=== PATIENT | male | born 1975 | race Asian ===

== ENCOUNTER 2025-01-19 13:01 | Emergency (ER) | payer BC, SELFPAY ==
[2025-01-19 13:27] VITALS: BP 121/86; PULSE 89; RESP 18; TEMP 37.2; O2SAT 96; BMI 41.9
--- NOTE | 2025-01-19 13:40 | PD.EDRME ---
Rapid Medical Screening Exam RME Arrival date/time: 01/19/25 13:01 49-year-old male presents to the emergency department today stating was sent here by PCP for low hemoglobin Chief Complaint: Recheck/Abnormal Lab/Rx Time Seen by Provider: 01/19/25 13:24 Vital signs: Vital Signs Temperature 99 F 01/19/25 13:27 Pulse Rate 89 01/19/25 13:27 Respiratory Rate 18 01/19/25 13:27 Blood Pressure 121/86 H 01/19/25 13:27 Pulse Oximetry (%) 96 01/19/25 13:27 Oxygen Delivery Method Room Air 01/19/25 13:27
[2025-01-19 14:18] LABS: Basophils % (Auto) 0 % (0-2.5); Eosinophils # (Auto) 0.1 Thou/mm3 (0.0-0.5); Eosinophils % (Auto) 1 % (0-10); Hematocrit 49.5 % (41.0-53.0); Hemoglobin 17.8 g/dL (13.5-16.0); Immature Granulocytes % (Auto) 0 % (0-0); Immature Granulocytes Auto 0.02 Thou/mm3 (0.00-0.00); Lymphocytes % (Auto) 42 % (10-50); Mean Corpuscular Volume 83 fL (80-100); Monocytes # (Auto) 0.5 Thou/mm3 (0.0-0.8); Monocytes % (Auto) 7 % (0-12); Neutrophils # (Auto) 3.6 Thou/mm3 (1.8-7.7); Neutrophils % (Auto) 50 % (37-80); Nucleated Red Blood Cell % 0 /100 WBC (0); Platelet Count 203 Thou/mm3 (140-440); RDW Standard Deviation 39.4 fL (35.1-43.9); Red Blood Count 5.94 Miln/mm3 (4.50-5.90); White Blood Count 7.2 Thou/mm3 (3.8-10.6)
[2025-01-19 14:35] LABS: Partial Thromboplastin Time 26.2 Seconds (22.0-36.0); Prothrombin Time 11.4 Seconds (9.0-12.2)
[2025-01-19 14:41] LABS: Alanine Aminotransferase 40 U/L (10-49); Albumin, Serum 4.7 gm/dL (3.5-5.0); Albumin/Globulin Ratio 1.5 (1.2-2.2); Alkaline Phosphatase 113 U/L (46-116); Anion Gap 7 (7-16); Aspartate Amino Transferase 29 U/L (0-34); BUN/Creatinine Ratio 12 Ratio (12-20); Bilirubin,Total 1.4 mg/dL (0.3-1.2); Blood Urea Nitrogen 13 mg/dL (9-23); Calcium 9.8 mg/dL (8.3-10.6); Calcium (Corrected) 9.8 mg/dL (8.5-10.1); Carbon Dioxide 27.1 mMol/L (20.0-31.0); Chloride 98 mMol/L (98-107); Creatinine (Component) 1.1 mg/dL (0.6-1.3); Estimated Creatinine Clearance 99.3 mL/min (>60); Globulin 3.2 gm/dL (2.3-3.5); Osmolality,Calculated 281 (275-295); Potassium 3.9 mMol/L (3.4-5.1); Sodium 132 mMol/L (136-145); Total Protein 7.9 gm/dL (5.7-8.2); eGFR > 60 See Note
[2025-01-19 14:42] LABS: Glucose 404 mg/dL (74-106)
[2025-01-19 17:01] VITALS: BP 148/94; PULSE 83; RESP 19; TEMP 36.8; O2SAT 97
--- NOTE | 2025-01-19 17:13 | EDNOTE_ITS ---
ED General RME/HPI General Chief complaint: Recheck/Abnormal Lab/Rx Stated complaint: SENT FOR BLOOD TRANSFUSION Time Seen by Provider: 01/19/25 13:24 Arrival date/time: 01/19/25 13:01 CC: Sent for anemia to the emergency room HPI patient states he has no complaints whatsoever has never had a history of anemia denies black stools vomiting blood shortness of breath difficulty breathing headache blurred vision seeing spots or chest pain. Patient admits he has not been taking his diabetes medicine for over a month as he could not get a refill of his Ozempic. Patient is awake alert oriented nontoxic-appearing not in any acute distress. RME / HPI RME / HPI narrative: 01/19/25 13:01 49-year-old male presents to the emergency department today stating was sent here by PCP for low hemoglobin Related Data Home Medications ?Medication ?Instructions ?Recorded ?Confirmed metformin 1,000 mg tablet 1,000 mg PO QDAY 12/04/20 Allergies Allergy/AdvReac Type Severity Reaction Status Date / Time No Known Allergies Allergy Verified 01/19/25 13:02 Review of Systems Review of Systems Narrative Review of Systems: GEN: No fever, no chills, no weight loss EYES: No discharge, no visual changes, no pain HEENT: No ear pain, no congestion, no sore throat PULM: No shortness of breath, no cough, no congestion CV: No chest pain, no dyspnea on exertion, no palpitations GI: No nausea, no vomiting, no diarrhea, no pain, no constipation : No frequency, no urgency, no dysuria MUSC/SKEL: No joint pain, no back pain SKIN: No rash PSYCH: No hallucinations, no depression HEME/LYMPH: No easy bleeding or bruising tendencies NEURO: No weakness, no headache Past Medical History Past Medical History NEUROLOGIC: Negative Neurological Disorders CARDIAC: Negative Cardiac Disorders or Congestive Heart Failure RESPIRATORY: Negative Chronic Obstructive Pulmonary Disease (COPD) GASTROINTESTINAL: Negative Gastrointestinal Disorders GENITOURINARY: Negative Genitourinary Disorders or Renal Disease REPRODUCTIVE: Negative Fibroids MUSCULOSKELETAL: Negative Musculoskeletal Disorders ENDOCRINE: Positive Endocrine Disorders and Diabetes Mellitus Type 2; Negative Diabetes Mellitus Type 1 HEMATOLOGIC: Negative Blood Disorders OTHER HISTORY: Negative Autoimmune Disease Family History FAMILY HISTORY: Negative Family Cardiac Disorders, Family Cancer, Family Surgery or Family Anesthesia Reaction Surgical History SURGICAL: Negative Cardiac Surgery, Endocrine Surgery, Ear Surgery, Abdominal Surgery, Nephrectomy or Joint Replacement Social History SMOKING STATUS: Never smoker ED Exam Narrative Physical exam: [General: Obese not in any acute distress Head normocephalic HEENT: Within acceptable limits Neck is supple nontender Chest equal chest rise nontender to palpation Respiratory: Clear to auscultation no wheezes crackles or rubs CV: Rate rhythm is regular no murmurs rubs or clicks Abdomen is distended secondary to body habitus soft nontender no masses positive bowel sounds all 4 quadrants Back: No CVA tenderness no spinous process tenderness from cervical spine thoracic and lumbar spine Skin: Intact no petechiae rash induration ulceration or crepitus Extremities: Moving all extremity against resistance cap refill less than 2 seconds neurosensory intact Neuro: Awake alert oriented x3 Glascow coma 15 no focal deficits] Course Course Course Narrative: Patient is afebrile nontoxic-appearing not in any acute distress at this time the patient will be discharged home with hyperglycemia I do believe there was an error in reading by primary care provider patient will be written follow-up with his primary care patient also stated his Ozempic is available at the pharmacy today as he just got a text we will discharge this patient promptly so he can restart on his Ozempic. Quality Measures none Orders Category Date Time Status CBC Stat Lab 01/19/25 14:04 Completed Comprehensive Metabolic Panel Stat Lab 01/19/25 14:04 Results Lipase Stat Lab 01/19/25 14:04 Results Partial Thromboplastin Time Stat Lab 01/19/25 14:04 Completed Prothrombin Time with INR Stat Lab 01/19/25 14:04 Completed Type and Screen Stat Lab 01/19/25 14:04 Completed Insulin Regular Med 01/19/25 17:12 Once 5 unit SC X1 ONE Vital Signs Vital signs: Vital Signs Temperature 99 F 01/19/25 13:27 Pulse Rate 89 01/19/25 13:27 Respiratory Rate 18 01/19/25 13:27 Blood Pressure 121/86 H 01/19/25 13:27 Pulse Oximetry (%) 96 01/19/25 13:27 Oxygen Delivery Method Room Air 01/19/25 13:27 Discharge Plan Plan Patient Disposition: HOME (Self Care) Patient condition on transfer: Stable Prescriptions/Referrals Prescriptions/Med Rec: No Action metformin 1,000 mg Tablet 1,000 mg PO QDAY Referrals: Bryon Rod MD [Primary Care Provider] - In 1 week Problem List Clinical Impression: Polycythemia, Hyperglycemia Patient/Caregiver Discharge Instructions Education Materials: ED Diabetes with High Blood Sugar Additional Instructions: Follow-up with your primary care provider start your exam promptly discussed with your provider Plan B in case Ozempic is not available if there is a worsening of symptoms return the emergency room medially for further evaluation. Print Language: Cameroonian Stand Alone Forms: Trish Award Info., Work/School Release, Patient Portal Info Letter PA/[employer] Supervising Physician PA/[employer]TE[employer] Supervising Physician: Felipe Allen ENP [facility] Labs/Rad/Tests considered, not ordered Describe: CBC shows no leukocytosis H&H of 17.8 and 49.5 respectively. Platelets within acceptable limits. Note this is not anemic Coags within acceptable limits CMP shows a sodium of 132 and a glucose of 404 note sodium is pseudohyponatremia. No other electrolyte imbalances no renal impairment T. bili 1.4 no transaminitis. Lipase is pending Medication Administration(s) Medication Administration History Insulin Human Regular (Insulin Hum Regular 1 Unit/0.01 Ml (Per Unit)) 5 unit SC X1 ONE Stop: 01/19/25 17:13
[2025-01-19] MEDS: INSULIN HUM REGULAR 1 UNIT/0.01 ML (PER UNIT) 5 UNIT SC (17:18)
[2025-01-19 17:24] LABS: Lipase 61 U/L (12-53)
[2025-01-19 17:30] VITALS: BP 127/87; PULSE 85; RESP 20; O2SAT 94
--- NOTE | 2025-01-19 17:30 | PC.NURSE ---
PT DISCHARGED HOME VIA PRIVATE VEHICLE; PT AMB TO ED ENTRANCE. D/C INSTRUCTIONS GIVEN W/ UNDERSTANDING EXPRESSED AND QUESTIONS ANSWERED.
== END 2025-01-19 17:30 | disposition home or self-care (01) ==
PROVIDERS: Nurse Practitioner Primary Care; Emergency Provider Emergency Medicine; PCP Family Medicine
DX: E11.65 Type 2 diabetes mellitus with hyperglycemia (principal); D75.1 Secondary polycythemia
CPT/HCPCS: 36415; 80053; 83690; 85025; 85610; 85730; 86850; 86900; 86901; 96372; 99283; J1815